=== PATIENT | female | born 1970 | race African-American/Black ===

== ENCOUNTER 2021-07-13 09:41 | Emergency (ER) | payer OTHER, MEDICAID ==
[~2021-07-13] VITALS: Ht 172.7 cm; Wt 83.0 kg
--- NOTE | 2021-07-13 09:44 | NUR ---
BIBA BLS TO ER BED 11
--- NOTE | 2021-07-13 09:45 | NUR ---
50 Y/O FEMALE BIBA C/O RIGHT FOOT PAIN 2 DESCRIBES ACHING X1DAY STEPPED ON GLASS WHILE DRINKING. FOOT HAS DRY BLOOD, NO ACTIVE BLEEDING AT THIS TIME. DENIES N/V, DENIES FEVER/CHILLS. DENIES PMH NKA
[2021-07-13 09:48] VITALS: BP 150/88
--- NOTE | 2021-07-13 09:49 | NUR ---
DR. COSTA BEDSIDE EVALUATING PT
--- NOTE | 2021-07-13 10:01 | NUR ---
per ermd pt foot was cleaned with towels and normal saline
[2021-07-13] MEDS ORDERED: ACETAMINOPHEN 325 MG TAB PO ONE (10:10)
--- NOTE | 2021-07-13 10:15 | NUR ---
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
[2021-07-13 10:28] VITALS: BP 150/88
--- NOTE | 2021-07-13 10:28 | NUR ---
Patient discharged with v/s stable. Written and verbal after care instructions given and explained. Patient verbalized understanding. Ambulatory with steady gait. All questions addressed prior to discharge. Advised to follow up with PMD.
== END 2021-07-13 10:28 | disposition home or self-care (01) ==
LOC: MED 09:41
DX: S91.111A Laceration without foreign body of right great toe without damage to nail, initial encounter (principal); W22.8XXA Striking against or struck by other objects, initial encounter; Y93.89 Activity, other specified; Y92.89 Other specified places as the place of occurrence of the external cause; Y99.8 Other external cause status
CPT/HCPCS: 12001; 90471; 90715; 99283